=== PATIENT | female | born 1950 | race Caucasian/White ===

== ENCOUNTER 2021-08-17 23:10 | Emergency (ER) | payer MEDICARE, SELFPAY ==
[2021-08-17 23:19] VITALS: BP 130/81; PULSE 91; RESP 18; TEMP 36.6; O2SAT 99; BMI 19.7
--- NOTE | 2021-08-18 02:11 | USR_ITS ---
PROCEDURE INFORMATION: Exam: US Duplex Left Lower Extremity Veins, Limited Exam date and time: 08/18/2021 2:40 AM Age: 71 years old Clinical indication: Pain; Edema, localized; Lower extremity, left; Leg, lower; Additional info: L leg edema TECHNIQUE: Imaging protocol: Real-time Duplex ultrasound of the Left Lower Extremity with 2-D montelongo scale, color Doppler flow and spectral waveform analysis with image documentation. Limited exam focused on the left lower extremity veins. COMPARISON: CR (LOW EXM, ) 08/18/2021 2:14 AM FINDINGS: Left deep veins: Unremarkable. The common femoral, femoral, proximal profunda femoral are patent without thrombus. Normal Doppler waveforms. Normal compressibility and/or augmentation response. There is normal compressibility of the popliteal vein. However evaluation for Doppler flow is limited in evaluation due to patient's condition. Left superficial veins: Unremarkable. Saphenofemoral junction is patent without thrombus. Soft tissues: Unremarkable. US/[place] [id number] IMPRESSION: No evidence of deep vein thrombosis.
--- NOTE | 2021-08-18 02:11 | XRR_ITS ---
PROCEDURE INFORMATION: Exam: XR Left Ankle Exam date and time: 08/18/2021 2:14 AM Age: 71 years old Clinical indication: Pain; Swelling, leg or foot; Patient HX: Patient C/O swelling and redness to left ankle. Patient sustained fracture from fall a few weeks ago. ; Additional info: Fall L ankle pain TECHNIQUE: Imaging protocol: Radiologic exam of the Left ankle. Views: 3 or more views. COMPARISON: No relevant prior studies available. FINDINGS: Bones/joints: Displaced distal fibular fracture. Minimally displaced distal tibial metadiaphyseal fracture. Joint effusion. Soft tissues: Soft tissue edema. XR/XR ankle LT min 3V* [id number] IMPRESSION: 1. Displaced distal fibular fracture. 2. Minimally displaced distal tibial metadiaphyseal fracture.
[2021-08-18 03:08] VITALS: RESP 18
[2021-08-18] MEDS: morphine 4 mg/mL SDV 1 mL IM (03:08)
[2021-08-18] MEDS: LORazepam 2 mg/mL INJ 1 mL 1 MG IM (03:35)
--- NOTE | 2021-08-18 04:55 | ED_ITS ---
HPI - Extremity Problem General: Chief complaint: Extremity Injury, Lower Stated complaint: possible infection in L leg Time Seen by Provider: 08/18/21 01:56 History of Present Illness: 71-year-old female who fell, hurting her left ankle sometime around 3 weeks ago. She would not let her family take her to the doctor until 3 days ago. She was seen in outside facility, and had trouble with tremor on her exam there. By her report, the physician became frustrated, and despite telling her that she broke her ankle, discharged her without pain medication. She presents tonight not in the splint, with increased swelling to the lower extremity as well as the ankle. She has significant pain, particularly with any weightbearing. MD Complaint: extremity pain Onset (ago): week(s) Pain Consistency: constant Location: left, lower extremity and other Quality: aching Radiation: none Relieving factors: nothing Exacerbating factors: range of motion and weight bearing Associated symptoms: Deny chest pain, fever(s), rash or short of breath Context: immobilization Review of Systems Const: Denies: fever(s) Card: Denies: chest pain Resp: Denies: dyspnea GI: Denies: abdominal pain Musc: Denies: neck pain or back pain Skin/Breast: Denies: rash Physical Exam Const: COMMON NORMALS: no acute distress GENERAL APPEARANCE: cooperative and frail appearing HENMT: COMMON NORMALS: normocephalic and atraumatic HEAD & SCALP: normocephalic and atraumatic Eye: COMMON NORMALS: Equal, round and reactive pupils present and EOMs intact bilaterally PUPIL: Yes Equal, round and reactive pupils present Neck/C-Spine: GENERAL: Yes trachea midline Chest: CHEST: Yes Symmetrical chest wall rise Resp: COMMON NORMALS: normal respiratory effort and No use of accessory muscles Cardio: COMMON NORMALS: regular rate and regular rhythm RATE: regular rate RHYTHM: regular rhythm OTHER: Neurovascularly intact to the lower extremities. GI: INSPECTION: Yes normal to inspection Extremity: NARRATIVE EXTREMITY EXAM: Examination left lower extremity reveals swelling over the medial and lateral ankle. There is slight deformity. There is tenderness over the medial and lateral malleoli of the ankle. There is swelling stretching up the calf. The calf is tender as well Neuro: SHELLEY COMA SCALE: document [facility] findings [place] coma scale eye opening: Spontaneous [place] coma scale verbal response: Orientated Shel[place] coma scale motor response: Obey commands Shelley coma scale total score: 15 Course Vital Signs: Vital signs: Vital Signs Temperature 98 F 08/17/21 23:19 Pulse Rate 91 08/17/21 23:19 Respiratory Rate 18 08/18/21 03:08 Blood Pressure 130/81 08/17/21 23:19 Pulse Oximetry 99 08/17/21 23:19 MDM - Extremity (Nontraumatic) Medical Decision Making X-ray reveals a mildly displacedTrimalleolar fracture, although her mortise appears un- widened. The patient had trouble with her ultrasound DVT exam, particularly with tremors that were worsening presumably due to Parkinson's disease. She was given pain medication with improvement. Ultrasound DVT is pending. Ultrasound for DVT is negative. She will be splinted, and referred as an outpatient for to Ortho. This fracture is 3 weeks old. She does appear to have some healing on fracture x-ray. Discharge Plan Discharge Patient Disposition: Home Clinical Impression: Ankle fracture Qualifiers: Encounter type: initial encounter Fracture type: closed Laterality: left Qualified Code(s): S82.892A - Other fracture of left lower leg, initial encounter for closed fracture Condition: Stable Prescriptions: New hydrocodone-acetaminophen 5-325 mg tablet 1 tab PO Q8H PRN (Reason: pain) Qty: 10 0RF Discharge Orders: Discharge ED (Routine); Ordered 08/18/21 Ordered By: Donnie Lei Referrals: Kimberly Aguilar MD [Physician] - 4-7 days Patient Instructions: Ankle Fracture (ED), Opioid Safety Activity Restrictions/Additional Instructions: Case management order has been placed to obtain an orthopedics referral as an outpatient for you. Stay in splint/boot until seen by them. No weightbearing to the left lower extremity return for worsening problems. Coding Level of Care Code ED Business Attorney for Roselia Fwd Exam Comprehensive
[2021-08-18 06:03] VITALS: BP 129/79; PULSE 89; RESP 18; TEMP 36.6; O2SAT 97
--- NOTE | 2021-08-19 08:11 | DCPLANNER ---
Addendum entered by Roseanne Patton 09/23/21 15:08: Patient had a follow up appointment scheduled for 08.22.[address] Aguilar - patient did attend appointment. Original Note: tax services manager had message to schedule a follow up appointment for patient with ortho. tax services manager sent patients information to the front office staff at ortho. Patients information will be printed and reviewed. Clinic will call patient with appointment information.
== END 2021-08-18 06:07 | disposition home or self-care (01) ==
PROVIDERS: Emergency Provider Emergency Medicine
DX: S82.892A Other fracture of left lower leg, initial encounter for closed fracture (principal); X58.XXXA Exposure to other specified factors, initial encounter
CPT/HCPCS: 73610; 93971; 96372; 99283; J2060; J2270

== ENCOUNTER → 2021-08-22 13:38 | Outpatient (BNVA) | payer MEDICARE, SELFPAY | PROVIDERS: Referring Provider Emergency Medicine; Visit Provider Specialist | DX: W19.XXXA Unspecified fall, initial encounter (principal); S82.852A Displaced trimalleolar fracture of left lower leg, initial encounter for closed fracture | CPT/HCPCS: 27816; 73610; 99204 ==

== ENCOUNTER 2021-08-22 15:47 | Outpatient (CLI) | payer MEDICARE, SELFPAY | END 2021-08-22 15:48 | disposition home or self-care (01) | LOC: SPT 15:48 | PROVIDERS: Visit Provider Specialist | DX: Z46.89 Encounter for fitting and adjustment of other specified devices (principal); S82.892D Other fracture of left lower leg, subsequent encounter for closed fracture with routine healing; X58.XXXD Exposure to other specified factors, subsequent encounter | CPT/HCPCS: 97760; L4361 ==

== ENCOUNTER → 2021-09-17 15:23 | Outpatient (BNVA) | payer MEDICARE, SELFPAY | PROVIDERS: Visit Provider Specialist | DX: S82.852P Displaced trimalleolar fracture of left lower leg, subsequent encounter for closed fracture with malunion (principal); W19.XXXD Unspecified fall, subsequent encounter | CPT/HCPCS: 73610; 99024 ==

== ENCOUNTER 2021-09-17 16:27 | Outpatient (CLI) | payer MEDICARE, SELFPAY | END 2021-09-17 16:28 | disposition home or self-care (01) | LOC: SPT 16:28 | PROVIDERS: Visit Provider Specialist | DX: Z46.89 Encounter for fitting and adjustment of other specified devices (principal); S82.852D Displaced trimalleolar fracture of left lower leg, subsequent encounter for closed fracture with routine healing; X58.XXXD Exposure to other specified factors, subsequent encounter | CPT/HCPCS: 97760; L1902 ==

== ENCOUNTER → 2022-03-25 15:13 | Outpatient (BNVA) | payer MEDICARE, SELFPAY | PROVIDERS: Visit Provider Podiatrist Foot & Ankle Surgery | DX: M21.42 Flat foot [pes planus] (acquired), left foot (principal); S82.852P Displaced trimalleolar fracture of left lower leg, subsequent encounter for closed fracture with malunion; M14.672 Charcot's joint, left ankle and foot; X58.XXXD Exposure to other specified factors, subsequent encounter | CPT/HCPCS: 73600; 73630; 99204 ==

== ENCOUNTER → 2022-06-27 11:52 | Outpatient (BNVA) | payer MEDICARE, SELFPAY | PROVIDERS: Visit Provider Podiatrist Foot & Ankle Surgery | DX: M14.672 Charcot's joint, left ankle and foot (principal); S82.852P Displaced trimalleolar fracture of left lower leg, subsequent encounter for closed fracture with malunion; M21.42 Flat foot [pes planus] (acquired), left foot; X58.XXXA Exposure to other specified factors, initial encounter | CPT/HCPCS: 73630; 99213 ==

== ENCOUNTER → 2022-10-30 14:34 | Outpatient (BNVA) | payer MEDICARE, SELFPAY | PROVIDERS: Visit Provider Surgery | DX: K62.3 Rectal prolapse (principal) | CPT/HCPCS: 99204 ==

== ENCOUNTER 2023-03-22 17:10 | Emergency (ER) | payer MEDICARE, SELFPAY ==
[2023-03-22 17:17] VITALS: BP 137/90; PULSE 91; RESP 17; O2SAT 95; BMI 17.3
--- NOTE | 2023-03-22 17:50 | ED_ITS ---
HPI - General Adult General: Chief complaint: General Medical Stated complaint: PROLAPSED RECTUM Time Seen by Provider: 03/22/23 17:11 Source: patient Mode of arrival: EMS History of Present Illness: 72-year-old female presents to the emerg ency room with complaints of prolapsed rectum. Tried several measures at the [facility] without results. No active bleeding. No fever sweats or chills. She has had a chronic issue with prolapsed rectum. Associated symptoms: Reports chest pain and dyspnea Review of Systems Card: Reports: chest pain Resp: Reports: dyspnea GI: Reports: abdominal pain PFSH ED PFSH: Medical History (Updated 03/22/23 @ 17:53 by Deion Torres DO) Parkinson disease Social History Smoking and tobacco/nicotine status: former use of tobacco/nicotine (stopped 11 years ago) Physical Exam Const: COMMON NORMALS: no acute distress GENERAL APPEARANCE: cooperative and comfortable ORIENTATION/CONSCIOUSNESS: Yes awake, Yes oriented to person, Yes oriented to place and Yes oriented to time HENMT: COMMON NORMALS: normocephalic, atraumatic and hearing grossly normal bilaterally HEAD & SCALP: normocephalic and atraumatic Resp: COMMON NORMALS: normal respiratory effort, No retractions, No use of accessory muscles and clear to auscultation bilaterally AUSCULTATION: clear to auscultation bilaterally Cardio: COMMON NORMALS: regular rate, regular rhythm and No murmurs present (Cardio) RATE: regular rate RHYTHM: regular rhythm GI: COMMON NORMALS: Soft to palpation and No hepatosplenomegaly present AUSCULTATION: Yes normoactive bowel sounds PALPATION: Yes Soft to palpation, No Tenderness to palpation present (GI), No Guarding due to palpation present (GI) and Yes No hepatosplenomegaly present Extremity: COMMON NORMALS: normal to inspection, capillary refill normal, no clubbing, cyanosis or edema, no calf tenderness and no pedal edema Neuro: SENSORIUM/ORIENTATION: Yes oriented to person, Yes oriented to place and Yes oriented to time Skin: COMMON NORMALS: no rashes or lesions noted GENERAL SKIN EXAM: no rashes or lesions noted Course Vital Signs: Vital signs: Vital Signs Pulse Rate 91 03/22/23 17:17 Respiratory Rate 17 03/22/23 17:17 Blood Pressure 137/90 03/22/23 17:17 Pulse Oximetry 95 03/22/23 17:17 Oxygen Delivery Me thod Room Air 03/22/23 17:17 MDM - General Adult Medical Decision Making Prophylaxis reptile manipulated and reduced without recurrence. Will discharge back to the [facility] continue to follow-up with primary care Medical Records I reviewed the patient's medical records. Lab Data I reviewed the patient's lab results. No radiology studies performed this visit Discharge Plan Discharge Patient Disposition: Home Clinical Impression: Rectal prolapse Condition: Stable Prescriptions: New Miralax 17 gram/dose powder 4 g PO DAILY Qty: 850 0RF No Action entacapone 200 mg tablet PO pantoprazole 40 mg tablet,delayed release (DR/EC) PO venlafaxine 150 mg capsule,extended release 24hr PO carbidopa-levodopa 50-200 mg tablet extended release PO ropinirole 0.5 mg tablet PO promethazine 12.5 mg tablet PO potassium chloride 10 mEq capsule, extended release PO baclofen 10 mg tablet PO hydrocodone-acetaminophen 10-325 mg tablet PO buspirone 15 mg tablet PO diazepam 5 mg tablet 5 mg PO DAILY sulfamethoxazole-trimethoprim 800-160 mg tablet PO venlafaxine 75 mg capsule,extended release 24hr 75 mg PO DAILY (DME) Torres Martinez boot to the left See Rx Instructions .Route .MEDSUPPLY Qty: 1 0RF Rx Instructions: As directed by [facility] Discharge Orders: Discharge ED (Routine); Ordered 03/22/23 Ordered By: Deion Torres Discharge Diet: Usual diet Discharge Activity: Increase activity as tolerated Patient Instructions: Opioid Safety, Pain Management Activity Restrictions/Additional Instructions: Thank you for choosing [facility] for your healthcare needs today. Please realize this is an emergency room and that we are providing you with a medical screening exam and this may not be complete and all inclusive of all the testing and or work up that you may need to determine your ailment or severity of your illness. It is very important that you follow up as instructed or that you return to the Emergency Department should you have concerns or if your condition changes or worsens in any way. Follow-up with your primary care doctor or with colorectal surgery regarding her rectal prolapse. Coding Level of Care Code ED Dough Sheeter for Roselia Hamm
[2023-03-22] MEDS: LORazepam 1 mg Tablet PO (18:38)
== END 2023-03-22 19:00 | disposition home or self-care (01) ==
PROVIDERS: Emergency Provider Family Medicine
DX: K62.3 Rectal prolapse (principal); G20.A1 Parkinson's disease without dyskinesia, without mention of fluctuations; Z87.891 Personal history of nicotine dependence
CPT/HCPCS: 99283

== ENCOUNTER 2023-09-19 10:25 | Emergency (ER) | payer MEDICARE, SELFPAY ==
--- NOTE | 2023-09-19 10:48 | XRR_ITS ---
PROCEDURE INFORMATION: Exam: XR Left Knee Exam date and time: 09/19/2023 10:53 AM Age: 73 years old Clinical indication: Injury or trauma; Fall; Blunt trauma; Knee; Left TECHNIQUE: Imaging protocol: Radiologic exam of the left knee. Views: 3 views. COMPARISON: CR XR foot LT min 3V* [id number] 06/27/2022 11:55 AM FINDINGS: Bones/joints: Osseous structures of the knee normal. No fracture. No joint effusion. Soft tissues unremarkable. Soft tissues: See Bones/joints finding. XR/XR knee LT 3V* [id number] IMPRESSION: Normal knee.
--- NOTE | 2023-09-19 10:48 | XRR_ITS ---
PROCEDURE INFORMATION: Exam: XR Left Hip Exam date and time: 09/19/2023 10:53 AM Age: 73 years old Clinical indication: Injury or trauma; Fall; Blunt trauma (contusions or hematomas); Left; Hip TECHNIQUE: Imaging protocol: Radiologic exam of the left hip. Views: 2 or 3 views hip with pelvis when performed. COMPARISON: No relevant prior studies available. FINDINGS: Bones/joints: Moderate degenerative changes within the hip including joint space narrowing and osteophyte formation particularly inferiorly. No acute fracture. The trabecular stress markings normal. Prior trauma involving the superior pubic ramus as well as the inferior pubic ramus. Fracture likely extends to the inferior aspect of the left acetabulum. Soft tissues: Unremarkable. XR/XR hip LT 2-3V wo/w pel* [id number] IMPRESSION: 1. Prior trauma involving the left superior pubic ramus as well as the inferior pubic ramus. Fracture likely extends to the inferior aspect of the left acetabulum. Healed. 2. Moderate degenerative changes within the hip.
--- NOTE | 2023-09-19 10:48 | CTR_ITS ---
PROCEDURE INFORMATION: Exam: CT Cervical Spine Without Contrast Exam date and time: 09/19/2023 11:28 AM Age: 73 years old Clinical indication: Injury or trauma; Fall; Blunt trauma TECHNIQUE: Imaging protocol: Computed tomography of the cervical spine without contrast. Radiation optimization: All CT scans at this facility use at least one of these dose optimization techniques: automated exposure control; mA and/or kV adjustment per patient size (includes targeted exams where dose is matched to clinical indication); or iterative reconstruction. COMPARISON: CT head wo con* [id number] 09/19/2023 11:28 AM RADIATION DOSE METRICS: Total DLP (mGy-cm): 1590.93 FINDINGS: Bones: posterior vertebral line and the spinal laminar line normal. odontoid process normal. no fracture. degenerative disc disease most pronounced C3-C4, C4-C5, C5-C6 and C6-C7 reflected as disk space narrowing and anterior osteophyte formation. Straightening of the normal cervical lordosis. Multi-level facet hypertrophic changes- Lungs: Lung apices are normal. Vasculature: Carotid calcifications particularly on the left Soft tissues: Unremarkable. CT/CT cervical spin wo con* [id number] IMPRESSION: No fracture. Degenerative disc disease most pronounced C3-C4, C4-C5, C5-C6 and C6-C7 reflected as disk space narrowing and anterior osteophyte formation.
--- NOTE | 2023-09-19 10:48 | CTR_ITS ---
PROCEDURE INFORMATION: Exam: CT Head Without Contrast Exam date and time: 09/19/2023 11:28 AM Age: 73 years old Clinical indication: Injury or trauma; Fall; Blunt trauma (contusions or hematomas) TECHNIQUE: Imaging protocol: Computed tomography of the head without contrast. Radiation optimization: All CT scans at this facility use at least one of these dose optimization techniques: automated exposure control; mA and/or kV adjustment per patient size (includes targeted exams where dose is matched to clinical indication); or iterative reconstruction. COMPARISON: No relevant prior studies available. RADIATION DOSE METRICS: Total DLP (mGy-cm): 1590.93 FINDINGS: Brain: No bleed, mass, or shift of structures. Mild atrophy. Areas of low attenuation in the periventricular white matter believed to be the manifestatiion of small vessel ischemic disease. No CT evidence of mass hemorrhage or acute infarction. 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 Cerebral ventricles: No ventriculomegaly. Paranasal sinuses: Visualized sinuses are unremarkable. No fluid levels. Mastoid air cells: Visualized mastoid air cells are well aerated. Bones: Unremarkable. No acute fracture. Soft tissues: Soft tissue scalp contusion in the left frontal region CT/CT head wo con* [id number] IMPRESSION: No acute intracranial process is appreciated.
[2023-09-19 11:08] VITALS: BP 142/81; PULSE 77; RESP 18; TEMP 36.8; O2SAT 95; BMI 19.0
[2023-09-19 11:16] LABS: Basophils % 0.6 %; Eosinophils # 0.2 10^3/uL (0.0-0.8); Eosinophils % 3.5 %; Hematocrit 43.3 % (36-47); Lymphocytes # 0.8 10^3/uL (0.8-4.8); Lymphocytes % 11.8 %; Mean Corpuscular HGB Conc 32.1 g/dL (30-55); Mean Corpuscular Hemoglobin 29.3 pg (27-33); Mean Corpuscular Volume 91.2 fl (85-98); Mean Platelet Volume 9.2 fL (7.4-10.4); Monocytes # 0.6 10^3/uL (0.2-0.9); Monocytes % 9.4 %; Neutrophils % 74.6 %; Nucleated Red Blood Cells % 0 %; Platelet Count 373 10^3/cmm (157-399); Red Blood Count 4.75 10^6/uL (3.85-5.65); Red Cell Distribution Width 12.5 % (12.1-15.1); White Blood Count 6.84 10^3/uL (3.29-11.43)
--- NOTE | 2023-09-19 11:35 | CTR_ITS ---
PROCEDURE INFORMATION: Exam: CT Pelvis Without Contrast; Skeletal Exam date and time: 09/19/2023 11:36 AM Age: 73 years old Clinical indication: Injury or trauma; Fall; Blunt trauma (contusions or hematomas); Bilateral; Pelvic region TECHNIQUE: Imaging protocol: Computed tomography of the pelvis without contrast. Exam focused on the skeleton. Radiation optimization: All CT scans at this facility use at least one of these dose optimization techniques: automated exposure control; mA and/or kV adjustment per patient size (includes targeted exams where dose is matched to clinical indication); or iterative reconstruction. COMPARISON: CR XR hip LT 2-3V wo/w pel* [id number] 09/19/2023 10:53 AM RADIATION DOSE METRICS: Total DLP (mGy-cm): 230.29 FINDINGS: Intraperitoneal space: No intraperitoneal or extraperitoneal free fluid. Bones/joints: Femoroacetabular alignment is normal bilaterally. The proximal femora are intact. There are chronic fractures of the left superior and inferior pubic rami. No acute pelvic fracture. SI joints are symmetric. Sacrum is intact. Moderate to severe lower lumbar disc and facet degeneration. Soft tissues: Visible soft tissues are unremarkable. CT/CT pelvis wo con [id number] IMPRESSION: 1. No sign of acute traumatic injury. 2. Chronic left pubic fractures.
[2023-09-19 11:36] LABS: Alanine Aminotransferase 7 U/L (0-33); Albumin Level 3.8 g/dL (3.5-5.2); Alkaline Phosphatase 111 U/L (35-105); Anion Gap 16.9 (5-19); Aspartate Amino Transferase 12 U/L (0-32); Blood Urea Nitrogen 12 mg/dL (8-23); Calcium 8.9 mg/dL (8.5-10.5); Carbon Dioxide 25 mmol/L (22-29); Chloride 102 mmol/L (98-107); Globulin 2.9 g/dL (1.3-4.6); Glucose 92 mg/dL (65-115); Osmolality Calculated 289 mOsm/kg (285-295); Potassium 3.9 mmol/L (3.5-5.1); Sodium 140 mmol/L (136-145); Total Bilirubin 0.2 mg/dL (0.15-1.2); Total Protein 6.7 g/dL (6.6-8.7)
[2023-09-19 12:00] VITALS: BP 145/78; PULSE 74; RESP 19; O2SAT 93
--- NOTE | 2023-09-19 12:57 | PC.PHAR ---
PT IS FROM [facility]
--- NOTE | 2023-09-19 13:09 | ED_ITS ---
HPI - Fall 2 General: Chief Complaint: Fall Stated Complaint: fall Time Seen by Provider: 09/19/23 10:27 History of Present Illness: 73-year-old female who presents emergenc y room with fall at longterm. Patient has an abrasion to her forehead circumstances exactly how she fell or not quite clear I believe it was last night. Patient denies any pain no chest pain or abdominal pain we did call back to the longterm the ER nurse had talked one of the longterm nurses and the only report we could get was that this sometime last night she fell. No report of loss of consciousness. Fall witnessed: no Place fall occurred: longterm/SNF Location of injury: head Associated symptoms-after fall: Denies abdominal pain, chest pain or neck pain Review of Systems 2 Const: Denies: fever(s) or chills Card: Denies: chest pain Resp: Denies: dyspnea GI: Denies: abdominal pain : Denies: dysuria, urinary frequency or urinary urgency Musc: Denies: neck pain or back pain Skin/Breast: Denies: rash PFSH ED 2 PFSH: Medical History Parkinson disease Social History Smoking and tobacco/nicotine status: former use of tobacco/nicotine (stopped 11 years ago) Physical Exam 2 Const: GENERAL APPEARANCE: cooperative ORIENTATION/CONSCIOUSNESS: Yes awake HENMT: COMMON NORMALS: normocephalic and hearing grossly normal bilaterally HEAD & SCALP: normocephalic Resp: COMMON NORMALS: normal respiratory effort, No retractions, No use of accessory muscles and clear to auscultation bilaterally AUSCULTATION: clear to auscultation bilaterally Cardio: COMMON NORMALS: regular rate, regular rhythm and No murmurs present (Cardio) RATE: regular rate RHYTHM: regular rhythm GI: COMMON NORMALS: Soft to palpation and No hepatosplenomegaly present A USCULTATION: Yes normoactive bowel sounds PALPATION: Yes Soft to palpation, No Tenderness to palpation present (GI), No Guarding due to palpation present (GI) and Yes No hepatosplenomegaly present Extremity: COMMON NORMALS: normal to inspection, capillary refill normal, no clubbing, cyanosis or edema, no calf tenderness and no pedal edema OTHER: Movement in all extremities without significant pain and did test her hips shoulders elbows and knees and ankles with no evidence of pain with range of motion no sign of trauma to these joints. Skin: COMMON NORMALS: no rashes or lesions noted GENERAL SKIN EXAM: no rashes or lesions noted Course 2 Vital Signs: Vital signs: Vital Signs Temperature 98.2 F 09/19/23 11:08 Pulse Rate 81 09/19/23 15:54 Respiratory Rate 22 H 09/19/23 15:54 Blood Pressure 152/68 09/19/23 15:54 Pulse Oximetry 95 09/19/23 15:54 MDM - Fall Medical Decision Making Patient does have a history of Parkinson's. She did have some white blood cells with +1 leukocyte however she is asymptomatic. I did not treat at this time we will await pending culture results. Other labs and CT are negative. She was complaining of some muscle spasms she was given Norflex and also her regular Sinemet dose. Workup otherwise unremarkable discharge patient back to the longterm with follow-up with her primary as needed Lab Data 09/19/23 11:10 09/19/23 11:10 Radiology Impressions Cervical Spine CT 09/19/23 10:48 IMPRESSION: No fracture. Degenerative disc disease most pronounced C3-C4, C4-C5, C5-C6 and C6-C7 reflected as disk space narrowing and anterior osteophyte formation. Head CT 09/19/23 10:48 IMPRESSION: No acute intracranial process is appreciated. Hip/Pelvis X-Ray 09/19/23 10:48 IMPRESSION: 1. Prior trauma involving the left superior pubic ramus as well as the inferior pubic ramus. Fracture likely extends to the inferior aspect of the left acetabulum. Healed. 2. Moderate degenerative changes within the hip. Knee X-Ray 09/19/23 10:48 IMPRESSION: Normal knee. Pelvis CT 09/19/23 11:35 IMPRESSION: 1. No sign of acute traumatic injury. 2. Chronic left pubic fractures. Laboratory Results WBC 6.84 10^3/uL (3.29-11.43) 09/19/23 11:10 RBC 4.75 10^6/uL (3.85-5.65) 09/19/23 11:10 Hgb 13.90 g/dL (11.27-16.99) 09/19/23 11:10 Hct 43.3 % (36-47) 09/19/23 11:10 MCV 91.2 fl (85-98) 09/19/23 11:10 MCH 29.3 pg (27-33) 09/19/23 11:10 MCHC 32.1 g/dL (30-55) 09/19/23 11:10 RDW 12.5 % (12.1-15.1) 09/19/23 11:10 Plt Count 373 10^3/cmm (157-399) 09/19/23 11:10 MPV 9.2 fL (7.4-10.4) 09/19/23 11:10 Neut % (Auto) 74.6 % 09/19/23 11:10 Lymph % (Auto) 11.8 % 09/19/23 11:10 [place] % (Auto) 9.4 % 09/19/23 11:10 Eos % (Auto) 3.5 % 09/19/23 11:10 Baso % (Auto) 0.6 % 09/19/23 11:10 Neut # (Auto) 5.10 10^3/uL (1.8-7.7) 09/19/23 11:10 Lymph # (Auto) 0.8 10^3/uL (0.8-4.8) 09/19/23 11:10 [place] # (Auto) 0.6 10^3/uL (0.2-0.9) 09/19/23 11:10 Eos # (Auto) 0.2 10^3/uL (0.0-0.8) 09/19/23 11:10 Baso # (Auto) 0.0 10^3/uL (0.0-0.1) 09/19/23 11:10 Nucleated RBC % (auto) 0 % 09/19/23 11:10 Nucleated RBCs # 0.0 /100WBC 09/19/23 11:10 Sodium 140 mmol/L (136-145) 09/19/23 11:10 Potassium 3.9 mmol/L (3.5-5.1) 09/19/23 11:10 Chloride 102 mmol/L (98-107) 09/19/23 11:10 Carbon Dioxide 25 mmol/L (22-29) 09/19/23 11:10 Anion Gap 16.9 (5-19) 09/19/23 11:10 BUN 12 mg/dL (8-23) 09/19/23 11:10 Creatinine 0.4 mg/dL (0.5-0.9) L 09/19/23 11:10 GFR Calculation Not Reportable 09/19/23 11:10 Glucose 92 mg/dL (65-115) 09/19/23 11:10 Calculated Osmolality 289 mOsm/kg (285-295) 09/19/23 11:10 Calcium 8.9 mg/dL (8.5-10.5) 09/19/23 11:10 Total Bilirubin 0.2 mg/dL (0.15-1.2) 09/19/23 11:10 AST 12 U/L (0-32) 09/19/23 11:10 ALT 7 U/L (0-33) 09/19/23 11:10 Alkaline Phosphatase 111 U/L (35-105) H 09/19/23 11:10 Total Protein 6.7 g/dL (6.6-8.7) 09/19/23 11:10 Albumin 3.8 g/dL (3.5-5.2) 09/19/23 11:10 Globulin 2.9 g/dL (1.3-4.6) 09/19/23 11:10 Urine Color Yellow (Yellow) 09/19/23 13:24 Urine Appearance Clear (CLEAR) 09/19/23 13:24 Urine pH 6 (5-7) 09/19/23 13:24 Ur Specific [place] 1.015 (1.005-1.030) 09/19/23 13:24 Urine Protein Neg (Negative) 09/19/23 13:24 Urine Glucose (UA) Norm (Normal) 09/19/23 13:24 Urine Ketones 1+ (Negative) H 09/19/23 13:24 Urine Blood Neg (Negative) 09/19/23 13:24 Urine Nitrate Negative (Negative) 09/19/23 13:24 Urine Bilirubin Neg (Negative) 09/19/23 13:24 Urine Urobilinogen Neg mg/dL (Negative) 09/19/23 13:24 Ur Leukocyte Esterase 1+ (Negative) H 09/19/23 13:24 Urine RBC 0-4 /hpf (0-2) H 09/19/23 13:24 Urine WBC 5-10 /hpf (0-5) H 09/19/23 13:24 Ur Squamous Epith Cells 0-4 /hpf (0-5) H 09/19/23 13:24 Amorphous Sediment Not Reportable 09/19/23 13:24 Urine Bacteria Trace /hpf (NONE) 09/19/23 13:24 Urine Mucus Trace /hpf 09/19/23 13:24 All radiology interpretation(s) finalized by discharge Discharge Plan Discharge Patient Disposition: Home Clinical Impression: Fall, Parkinson disease Condition: Stable Prescriptions: No Action entacapone 200 mg tablet 1 tab PO .5XD venlafaxine 150 mg capsule,extended release 24hr 300 mg PO QAM carbidopa-levodopa 50-200 mg tablet extended release 2 tab PO QID ropinirole 0.5 mg tablet 0.5 mg PO TID promethazine 12.5 mg tablet 1 tab PO Q6H PRN (Reason: Indigestion) baclofen 10 mg tablet 1 tab PO TID buspirone 15 mg tablet 15 mg PO TID diazepam 5 mg tablet 5 mg PO TID (DME) [place] boot to the left See Rx Instructions .Route .MEDSUPPLY Qty: 1 0RF Rx Instructions: As directed by [facility] albuterol sulfate 2.5 mg /3 mL (0.083 %) solution for nebulization 2.5 mg inhalation Q4H PRN (Reason: Wheezing) ascorbic acid (vitamin C) 250 mg Tablet 250 mg PO BID benzonatate 100 mg Capsule 100 mg PO TID PRN (Reason: Cough) alum-mag hydroxide-simeth 200-200-20 mg/5 mL Suspension 30 ml PO Q2H PRN (Reason: Indigestion) Rx Instructions: administer between meals and at bedtime albuterol sulfate 90 mcg/actuation HFA aerosol inhaler 2 puff INHALATION Q6H PRN (Reason: Shortness Of Breath) cholecalciferol (vitamin D3) 25 mcg (1,000 unit) Tablet 25 mcg PO DAILY diclofenac sodium 1 % Gel 4 g TOPICAL BID Rx Instructions: apply to single knee, ankle, foot; for foot includes sole/toes/top of foot Biofreeze (menthol) 4 % Gel 1 applic TOPICAL Q6H PRN (Reason: Pain) multivitamin Tablet 1 tab PO DAILY hydrocortisone 0.5 % Cream 1 applic TOPICAL BID acetaminophen 325 mg Tablet 650 mg PO Q6H PRN (Reason: Pain) ipratropium-albuterol 0.5 mg-3 mg(2.5 mg base)/3 mL Solution For Nebulization 3 ml INHALATION Q6H PRN (Reason: Shortness Of Breath) lidocaine 4 % Adhesive Patch,Medicated 1 patch TOPICAL DAILY PRN (Reason: Pain) ondansetron HCl 8 mg tablet 8 mg PO Q6H PRN (Reason: Nausea And Vomiting) sucralfate 1 gram tablet 1 mg PO BID potassium chloride 20 mEq tablet,ER particles/crystals 20 meq PO BID nortriptyline 75 mg capsule 75 mg PO BEDTIME ferrous sulfate 325 mg (65 mg iron) Tablet 325 mg PO BID Colace 100 mg Capsule 100 mg PO DAILY Flonase 50 mcg/actuation [place],Suspension 1 spray INTRANASAL DAILY Rx Instructions: administer into each nostril loratadine 10 mg Tablet 10 mg PO DAILY Robitussin Cold, Cough,and Flu 1-2.5-5-160 mg/5 mL Suspension 5 ml PO Q4H PRN (Reason: Cough) oxycodone 10 mg tablet 10 mg PO Q6H PRN (Reason: Pain, Moderate) guaifenesin 600 mg Tablet Extended Release 12hr 600 mg PO Q12H melatonin 1 mg Tablet Extended Release 1 mg PO BEDTIME Discharge Orders: Discharge ED (Routine); Ordered 09/19/23 Ordered By: Deion Torres Referrals: Daniel Coroenl Jr, MD [Primary Care Provider] - Discharge Diet: Usual diet Discharge Activity: Resume usual activity Patient Instructions: Opioid Safety, Pain Management Coding Level of Care Code ED [employer]ctor for Roselia Hamm
[2023-09-19 13:28] VITALS: BP 143/77; PULSE 71; RESP 20; O2SAT 93
[2023-09-19] MEDS: tizanidine 4 mg Tablet 2 MG PO (13:34)
[2023-09-19 13:36] LABS: Urine Color Yellow (Yellow)
[2023-09-19 13:37] LABS: Bilirubin Urine Neg (Negative); Blood Urine Neg (Negative); Glucose Urine UA Norm (Normal); Ketones Urine 1+ (Negative); Leukocyte Esterase Urine 1+ (Negative); Nitrate Urine Negative (Negative); Protein Urine Neg (Negative); RBC Urine 0-4 /hpf (0-2); Specific Gravity, Urine 1.015 (1.005-1.030); Urine Appearance Clear (CLEAR); Urobilinogen Urine Neg (Negative); pH Urine 6 (5-7)
[2023-09-19 13:38] LABS: Add Urine Culture? Yes; Add Urine Microscopic? YES; Bacteria Urine TRACE /hpf; Mucus Urine TRACE /hpf; Squamous Epithelial Cell Urine 0-4 /hpf (0-5)
[2023-09-19] MEDS: baclofen 10 mg Tablet PO (14:19)
[2023-09-19 15:54] VITALS: BP 152/68; PULSE 81; RESP 22; O2SAT 95
== END 2023-09-19 15:55 | disposition home or self-care (01) ==
PROVIDERS: Emergency Provider Family Medicine; PCP Family Medicine
DX: S00.81XA Abrasion of other part of head, initial encounter (principal); G20.A1 Parkinson's disease without dyskinesia, without mention of fluctuations; W19.XXXA Unspecified fall, initial encounter; Y92.129 Unspecified place in nursing home as the place of occurrence of the external cause; Z87.891 Personal history of nicotine dependence
CPT/HCPCS: 70450; 72125; 72192; 73502; 73562; 80053; 81001; 85025; 87086; 99284

== ENCOUNTER → 2023-10-06 08:00 | Outpatient (BNVA) | payer MEDICARE, SELFPAY | PROVIDERS: PCP Family Medicine; Referring Provider Family Medicine; Visit Provider Psychiatry & Neurology Neurology | DX: G20.B1 Parkinson's disease with dyskinesia, without mention of fluctuations (principal) | CPT/HCPCS: 99203 ==

== ENCOUNTER → 2023-11-24 12:15 | Outpatient (BNVA) | payer MEDICARE, SELFPAY | PROVIDERS: PCP Family Medicine; Visit Provider Psychiatry & Neurology Neurology | DX: M25.572 Pain in left ankle and joints of left foot (principal); G20.B1 Parkinson's disease with dyskinesia, without mention of fluctuations; K62.3 Rectal prolapse; M14.672 Charcot's joint, left ankle and foot; S82.852P Displaced trimalleolar fracture of left lower leg, subsequent encounter for closed fracture with malunion; E55.9 Vitamin D deficiency, unspecified; G20.A1 Parkinson's disease without dyskinesia, without mention of fluctuations; X58.XXXD Exposure to other specified factors, subsequent encounter | CPT/HCPCS: 36415; 82306; 82310; 82607; 82746; 83090; 83735; 83921; 84132; 84295; 84439; 84443; 84481; 99212; 99214 ==

== ENCOUNTER 2024-01-24 17:01 | Emergency (ER) | payer MEDICARE, SELFPAY ==
[2024-01-24 17:02] VITALS: BP 147/60; PULSE 77; RESP 17; TEMP 36.5; O2SAT 97
--- NOTE | 2024-01-24 17:06 | CTR_ITS ---
PROCEDURE INFORMATION: Exam: CT Head Without Contrast Exam date and time: 01/24/2024 5:33 PM Age: 73 years old Clinical indication: Injury or trauma; Fall; Blunt trauma (contusions or hematomas); Without loss of consciousness; Additional info: Fall, head injury TECHNIQUE: Imaging protocol: Computed tomography of the head without contrast. Radiation optimization: All CT scans at this facility use at least one of these dose optimization techniques: automated exposure control; mA and/or kV adjustment per patient size (includes targeted exams where dose is matched to clinical indication); or iterative reconstruction. COMPARISON: CT head wo con* [id number] 09/19/2023 11:28 AM RADIATION DOSE METRICS: Total DLP (mGy-cm): 801.85 FINDINGS: Brain: Normal. No hemorrhage. Unremarkable white matter. No mass effect. Cerebral ventricles: No ventriculomegaly. Paranasal sinuses: Visualized sinuses are unremarkable. No fluid levels. Mastoid air cells: Visualized mastoid air cells are well aerated. Bones: Unremarkable. No acute fracture. Soft tissues: Unremarkable. CT/CT head wo con* [id number] IMPRESSION: No acute intracranial abnormality.
--- NOTE | 2024-01-24 17:07 | ECG_ITS ---
[facility] Date: 2024-[facility]24 Pat Name: Anny Goodwin Department: Room: Gender: Female Branch Officer: : 1950 Requested By: Saritha Mcguire Order Number: [id number] Reading MD: MICHELLE VALENTIN Measurements Intervals [place] Rate: 79 P: 66 ND: 183 QRS: -11 QRSD: 106 T: 66 QT: 396 QTc: 455 Interpretive Statements SINUS RHYTHM INFERIOR MYOCARDIAL INFARCTION , PROBABLY OLD [40+ ms Q WAVE AND/OR ST/T ABNORMALITY IN II/aVF] Compared to ECG 06/11/2014 03:22:02 Incomplete right bundle-branch block no longer present Myocardial infarct finding still present Electronically Signed On 01-26-2024 19:26:55 SIMULATION DEVELOPER by MICHELLE VALENTIN [email or web address]
--- NOTE | 2024-01-24 17:07 | XRR_ITS ---
PROCEDURE INFORMATION: Exam: XR Chest Exam date and time: 01/24/2024 5:20 PM Age: 73 years old Clinical indication: Dyspnea; Additional info: Weakness TECHNIQUE: Imaging protocol: Radiologic exam of the chest. Views: 1 view. COMPARISON: CT cervical spin wo con* [id number] 09/19/2023 11:28 AM FINDINGS: Lungs: Hypoventilatory changes at the left lung base. Mild interstitial prominence. Pleural spaces: Unremarkable. No pleural effusion. No pneumothorax. Heart/Mediastinum: See Vasculature finding. Vasculature: Borderline cardiomegaly and uncoiling of the thoracic aorta. Bones/joints: Unremarkable. XR/XR chest 1V portable [id number] IMPRESSION: No acute cardiopulmonary disease.
--- NOTE | 2024-01-24 17:20 | ED_ITS ---
HPI - Seizure 2 General: Chief Complaint: Syncope Stated Complaint: seizure Time Seen by Provider: 01/24/24 17:03 History of Present Illness: HPI Narrative: 73-year-old female with a history of Par kinson's and medication induced movement disorder, who follows with Dr. Blackwell and neurology, and chronic hypoxemic respiratory failure on 4 L nasal cannula who presents to the emergency room after having an episode where she was unresponsive for about 3 minutes. She was in the bathtub at this time at the skilled nursing. She presents by ambulance. She says right now she feels okay other than she is having cramping in her legs which she has frequently. There was no postictal event. No tonic-clonic movement. She is afebrile. She is on 4 L nasal cannula on presentation. Related Data Home Medications Medication Instructions Recorded Confirmed buspirone 15 mg tablet 15 mg PO TID 03/25/22 11/24/23 entacapone 200 mg tablet 1 tab PO .5XD 03/25/22 11/24/23 ropinirole 0.5 mg tablet 0.5 mg PO TID 03/25/22 11/24/23 venlafaxine 150 mg 300 mg PO QAM 03/25/22 11/24/23 capsule,extended release 24 hr diazepam 5 mg tablet 5 mg PO TID 10/30/22 11/24/23 acetaminophen 325 mg tablet 650 mg PO Q6H PRN Pain 09/19/23 11/24/23 albuterol sulfate 2.5 mg/3 mL 2.5 mg inhalation Q4H PRN Wheezing 09/19/23 11/24/23 (0.083 %) solution for nebulization albuterol sulfate 90 mcg/actuation 2 puff inhalation Q6H PRN 09/19/23 11/24/23 aerosol inhaler Shortness Of Breath aluminum-mag hydroxide-simethicone 30 ml PO Q2H PRN Indigestion 09/19/23 11/24/23 200 mg-200 mg-20 mg/5 mL oral susp ascorbic acid (vitamin C) 250 mg 250 mg PO BID 09/19/23 11/24/23 tablet benzonatate 100 mg capsule 100 mg PO TID PRN Cough 09/19/23 11/24/23 zjkogshkf-bpbmeyxdv-HG-acetaminophen 5 ml PO Q4H PRN Cough 09/19/23 11/24/23 1 mg-2.5 mg-5 mg-160 mg/5 mL susp cholecalciferol (vitamin D3) 25 25 mcg PO DAILY 09/19/23 11/24/23 mcg (1,000 unit) tablet diclofenac sodium 1 % topical gel 4 g topical BID 09/19/23 11/24/23 docusate sodium 100 mg capsule 100 mg PO DAILY 09/19/23 11/24/23 (Colace) ferrous sulfate 325 mg (65 mg 325 mg PO BID 09/19/23 11/24/23 iron) tablet fluticasone propionate 50 1 spray intranasal DAILY 09/19/23 11/24/23 mcg/actuation nasal spray,suspension guaifenesin 600 mg tablet, 600 mg PO Q12H 09/19/23 11/24/23 extended release 12 hr hydrocortisone 0.5 % topical cream 1 applic topical BID 09/19/23 11/24/23 ipratropium 0.5 mg-albuterol 3 mg 3 ml inhalation Q6H PRN Shortness 09/19/23 11/24/23 (2.5 mg base)/3 mL nebulization Of Breath soln lidocaine 4 % topical patch 1 patch topical DAILY PRN Pain 09/19/23 11/24/23 loratadine 10 mg tablet 10 mg PO DAILY 09/19/23 11/24/23 menthol 4 % topical gel (Biofreeze 1 applic topical Q6H PRN Pain 09/19/23 11/24/23 (menthol)) multivitamin 1 tab PO DAILY 09/19/23 11/24/23 nortriptyline 75 mg capsule 75 mg PO BEDTIME 09/19/23 11/24/23 ondansetron HCl 8 mg tablet 8 mg PO Q6H PRN Nausea And Vomiting 09/19/23 11/24/23 oxycodone 10 mg tablet 10 mg PO Q6H PRN Pain, Moderate 09/19/23 11/24/23 potassium chloride 20 mEq 20 meq PO BID 09/19/23 11/24/23 tablet,extended release(part/cryst) sucralfate 1 gram tablet 1 mg PO BID 09/19/23 11/24/23 Previous Rx's Medication Instructions Recorded [place] ronald to the left #1 ea 04/27/23 baclofen 10 mg tablet 10 mg PO QID #120 tabs 11/24/23 carbidopa 25 mg-levodopa 100 mg 2 tab PO .COMPLEX #120 tabs 11/24/23 tablet Allergies Allergy/AdvReac Type Severity Reaction Status Date / Time morphine Allergy Mild ADR-Migrain Verified 11/24/23 12:19 e cetirizine [From Zyrtec] Allergy ALGY-Hives Verified 11/24/23 12:19 clonazepam [From Klonopin] Allergy ALGY-Hives Verified 11/24/23 12:19 Review of Systems 2 Narrative: Constitutional symptoms: Negative except as documented in HPI. Skin symptoms: Negative except as documented in HPI. Eye symptoms: Negative except as documented in HPI. ENMT symptoms: Negative except as documented in HPI. Respiratory symptoms: Negative except as documented in HPI. Cardiovascular symptoms: Negative except as documented in HPI. Gastrointestinal symptoms: Negative except as documented in HPI. Genitourinary symptoms: Negative except as documented in HPI. Musculoskeletal symptoms: Negative except as documented in HPI. Neurologic symptoms: Negative except as documented in HPI. Psychiatric symptoms: Negative except as documented in HPI. Endocrine symptoms: Negative except as documented in HPI. PFSH ED 2 PFSH: Medical History Parkinson disease Social History Smoking and tobacco/nicotine status: former use of tobacco/nicotine Physical Exam 2 Narrative: EXAM NARRATIVE: General: Alert, no acute distress. Skin: Warm, dry. Head: Normocephalic, atraumatic. Neck: Supple, trachea midline. Eye: Extraocular movements are intact. Ears, nose, mouth and throat: mucosa moist. Cardiovascular: Regular, Normal peripheral perfusion. Respiratory: Lungs are clear to auscultation, respirations are non-labored, breath sounds are equal, Symmetrical chest wall expansion. Gastrointestinal: Soft, Nontender, Non distended Musculoskeletal: Normal ROM, no deformity. Neurological: Alert and oriented, No focal neurological deficit observed. Patient is somewhat cachectic. She has some contractures of her hands. She has constant movement from her movement disorder. Psychiatric: Cooperative, appropriate mood & affect. Course 2 Vital Signs: Vital signs: Vital Signs Temperature 97.7 F 01/24/24 17:02 Pulse Rate 62 01/24/24 19:13 Respiratory Rate 26 H 01/24/24 19:13 Blood Pressure 109/50 01/24/24 19:13 Pulse Oximetry 94 01/24/24 19:13 Oxygen Delivery Me thod Nasal Cannula 01/24/24 19:13 Oxygen Flow Rate 3 01/24/24 18:09 MDM - Seizure MDM Narrative Medical decision making narrative: Medical decision making: Differential diagnosis including but not limited to and based on the above HPI, review of systems and physical exam in this patient with syncope: Vasovagal, orthostatics hypotension, cardiac dysrhythmia, myocardial infarction, infection and hypotension, Orders placed to evaluate differential diagnosis based on the above differential, HPI and physical exam EKG: Time 1709. Rate 79. Normal sinus rhythm, No ST-T changes, no ectopy, normal TN & QRS intervals, This was reviewed and interpreted by myself the ER physician at 1715. There is significant interference from the patient's movement disorder CT head: No acute intracranial process. no intracranial hemorrhage, no evidence of infarct. no evidence of acute fracture.This was reviewed and interpreted by myself the ER physician. Chest x-ray: No acute process. No infiltrate. No pneumothorax. This was reviewed and interpreted by myself the emergency room physician. I also reviewed the radiology report. Lab Review: Laboratory results were reviewed and interpreted by myself the emergency room physician. No leukocytosis. Hemoglobin 11. BUN/creatinine are 20 and 0.5. Troponin mildly elevated at 38 but not significantly changed on 2-hour repeat. This is likely her baseline. Given her muscle mass BUN of 20 would indicate some renal dysfunction despite her creatinine of 0.5. I reviewed the patient's medical record. Reexamination: Patient remained stable. No increased work of breathing. No altered mental status. No focal motor deficits. Assessment and plan: Syncope Concern for seizure - Discharged home - Discussed plan with patient. Answered any questions. - Evaluation and treatment of this problem were appropriate in the emergency setting. Lab Data 01/24/24 17:25 01/24/24 17:25 Labs: Radiology Impressions Head CT 01/24/24 17:06 IMPRESSION: No acute intracranial abnormality. Chest X-Ray 01/24/24 17:07 IMPRESSION: No acute cardiopulmonary disease. Laboratory Results WBC 6.83 10^3/uL (3.29-11.43) 01/24/24 17:25 RBC 4.24 10^6/uL (3.85-5.65) 01/24/24 17:25 Hgb 11.00 g/dL (11.27-16.99) L 01/24/24 17:25 Hct 35.4 % (36-47) L 01/24/24 17:25 MCV 83.5 fl (85-98) L 01/24/24 17:25 MCH 25.9 pg (27-33) L 01/24/24 17:25 MCHC 31.1 g/dL (30-55) 01/24/24 17:25 RDW 15.4 % (12.1-15.1) H 01/24/24 17:25 Plt Count 371 10^3/cmm (157-399) 01/24/24 17:25 MPV 9.8 fL (7.4-10.4) 01/24/24 17:25 Neut % (Auto) 84.6 % 01/24/24 17:25 Lymph % (Auto) 7.6 % 01/24/24 17:25 Frio % (Auto) 6.9 % 01/24/24 17:25 Eos % (Auto) 0.3 % 01/24/24 17:25 Baso % (Auto) 0.3 % 01/24/24 17: Neut # (Auto) 5.78 10^3/uL (1.8-7.7) 01/24/24 17:25 Lymph # (Auto) 0.5 10^3/uL (0.8-4.8) L 01/24/24 17:25 Frio # (Auto) 0.5 10^3/uL (0.2-0.9) 01/24/24 17:25 Eos # (Auto) 0.0 10^3/uL (0.0-0.8) 01/24/24 17:25 Baso # (Auto) 0.0 10^3/uL (0.0-0.1) 01/24/24 17: Nucleated RBC % (auto) 0 % 01/24/24 17: Nucleated RBCs # 0.0 /100WBC 01/24/24 17:25 Specimen Type Arterial 01/24/24 17:12 Sample Site Radial, left 01/24/24 17:12 ABG pH 7.41 (7.35-7.45) 01/24/24 17:12 ABG pCO2 41.5 mmHg (35-45) 01/24/24 17:12 ABG pO2 75.1 mmHg (80.0-100.0) L 01/24/24 17:12 ABG PO2/FiO2 Ratio 208 01/24/24 17:12 ABG HCO3 25.9 mmol/L (22-26) 01/24/24 17:12 ABG O2 Saturation 95.7 01/24/24 17:12 ABG Base Excess 1.1 mmol/L (-2.0-2.0) 01/24/24 17:12 Jerrod Test Pos 01/24/24 17:12 A-a O2 Gradient 16.9 mmHg (5-10) H 01/24/24 17:12 Hematocrit 33.0 % (37-47) L 01/24/24 17:12 Hgb O2 Saturation 94.3 % (95-100) L 01/24/24 17:12 Carboxyhemoglobin 0.6 %THgb (0.4-20.1) 01/24/24 17:12 Methemoglobin 0.9 % (0.4-1.5) 01/24/24 17:12 Total Hemoglobin 10.8 g/dL (12-16) L 01/24/24 17:12 Sodium 137.0 mmol/L (131-143) 01/24/24 17:12 Potassium 3.8 mmol/L (3.5-5.0) 01/24/24 17:12 Glucose 111.0 mg/dL (70-115) 01/24/24 17:12 Ionized Calcium 1.2 mmol/L (1.1-1.4) 01/24/24 17:12 O2 Delivery Device Nc 01/24/24 17:12 O2 Liters/Min 4.0 % 01/24/24 17:12 FiO2 36.0 % 01/24/24 17:12 Leaded Glass Installer ID Cak 01/24/24 17:12 Sodium 139 mmol/L (136-145) 01/24/24 17:25 Potassium 4.3 mmol/L (3.5-5.1) 01/24/24 17:25 Chloride 99 mmol/L (98-107) 01/24/24 17:25 Carbon Dioxide 28 mmol/L (22-29) 01/24/24 17:25 Anion Gap 16.3 (5-19) 01/24/24 17:25 BUN 20 mg/dL (8-23) 01/24/24 17:25 Creatinine 0.5 mg/dL (0.5-0.9) 01/24/24 17:25 GFR Calculation Not Reportable 01/24/24 17:25 Glucose 108 mg/dL (65-115) 01/24/24 17:25 Calculated Osmolality 291 mOsm/kg (285-295) 01/24/24 17:25 Lactic Acid 1.4 mmol/L (0.5-2.2) 01/24/24 17:25 Calcium 9.8 mg/dL (8.5-10.5) 01/24/24 17:25 Total Bilirubin 0.4 mg/dL (0.15-1.2) 01/24/24 17:25 AST 12 U/L (0-32) 01/24/24 17:25 ALT < 5 U/L (0-33) 01/24/24 17:25 Alkaline Phosphatase 108 U/L (35-105) H 01/24/24 17:25 Creatine Kinase 144 U/L (26-192) 01/24/24 17:25 Troponin T Baseline 38 ng/L (0-10) H 01/24/24 17:25 Troponin T 120 Minute 31.15 ng/L (0-10) H 01/24/24 19:18 Delta Troponin T -6.85 ABS# (0-10) L 01/24/24 19:18 C-Reactive Protein 3.0 mg/L (0.0-4.9) 01/24/24 17:25 Total Protein 6.9 g/dL (6.6-8.7) 01/24/24 17:25 Albumin 4.5 g/dL (3.5-5.2) 01/24/24 17:25 Globulin 2.4 g/dL (1.3-4.6) 01/24/24 17:25 Urine Color Not Reportable 01/24/24 18:08 Urine Appearance Not Reportable 01/24/24 18:08 Urine pH Not Reportable 01/24/24 18:08 Ur Specific [place] Not Reportable 01/24/24 18:08 Urine Protein Not Reportable 01/24/24 18:08 Urine Glucose (UA) Not Reportable 01/24/24 18:08 Urine Ketones Not Reportable 01/24/24 18:08 Urine Blood Not Reportable 01/24/24 18:08 Urine Nitrate Not Reportable 01/24/24 18:08 Urine Bilirubin Not Reportable 01/24/24 18:08 Urine Urobilinogen Not Reportable 01/24/24 18:08 Ur Leukocyte Esterase Not Reportable 01/24/24 18:08 Urine RBC 0-4 /hpf (0-2) H 01/24/24 18:08 Urine WBC 0-4 /hpf (0-5) H 01/24/24 18:08 Ur Squamous Epith Cells 0-4 /hpf (0-5) H 01/24/24 18:08 Calcium Oxalate Crystal 0-4 /hpf H 01/24/24 18:08 Amorphous Sediment Not Reportable 01/24/24 18:08 Urine Bacteria Trace /hpf (NONE) 01/24/24 18:08 Urine Mucus Trace /hpf 01/24/24 18:08 Coronavirus (PCR) Negative (Negative) 01/24/24 18:08 Influenza A (PCR) Negative (Negative) 01/24/24 18:08 Influenza Type B (PCR) Negative (Negative) 01/24/24 18:08 RSV (PCR) Negative (Negative) 01/24/24 18:08 All radiology interpretation(s) finalized by discharge Discharge Plan Discharge Patient Disposition: Home Clinical Impression: Syncope Condition: Stable Prescriptions: No Action entacapone 200 mg tablet 1 tab PO .5XD venlafaxine 150 mg capsule,extended release 24hr 300 mg PO QAM ropinirole 0.5 mg tablet 0.5 mg PO TID buspirone 15 mg tablet 15 mg PO TID diazepam 5 mg tablet 5 mg PO TID carbidopa-levodopa 25-100 mg tablet 2 tab PO .COMPLEX Qty: 120 4RF Rx Instructions: 2 tabs orally at 7:30AM 12:00PM 6:00PM & 10:00 pm baclofen 10 mg tablet 10 mg PO QID Qty: 120 4RF (DME) [place] boot to the left See Rx Instructions .Route .MEDSUPPLY Qty: 1 0RF Rx Instructions: As directed by [facility] [place] albuterol sulfate 2.5 mg /3 mL (0.083 %) solution for nebulization 2.5 mg inhalation Q4H PRN (Reason: Wheezing) ascorbic acid (vitamin C) 250 mg Tablet 250 mg PO BID benzonatate 100 mg Capsule 100 mg PO TID PRN (Reason: Cough) alum-mag hydroxide-simeth 200-200-20 mg/5 mL Suspension 30 ml PO Q2H PRN (Reason: Indigestion) Rx Instructions: administer between meals and at bedtime albuterol sulfate 90 mcg/actuation HFA aerosol inhaler 2 puff INHALATION Q6H PRN (Reason: Shortness Of Breath) cholecalciferol (vitamin D3) 25 mcg (1,000 unit) Tablet 25 mcg PO DAILY diclofenac sodium 1 % Gel 4 g TOPICAL BID Rx Instructions: apply to single knee, ankle, foot; for foot includes sole/toes/top of foot Biofreeze (menthol) 4 % Gel 1 applic TOPICAL Q6H PRN (Reason: Pain) multivitamin Tablet 1 tab PO DAILY hydrocortisone 0.5 % Cream 1 applic TOPICAL BID acetaminophen 325 mg Tablet 650 mg PO Q6H PRN (Reason: Pain) ipratropium-albuterol 0.5 mg-3 mg(2.5 mg base)/3 mL Solution For Nebulization 3 ml INHALATION Q6H PRN (Reason: Shortness Of Breath) lidocaine 4 % Adhesive Patch,Medicated 1 patch TOPICAL DAILY PRN (Reason: Pain) ondansetron HCl 8 mg tablet 8 mg PO Q6H PRN (Reason: Nausea And Vomiting) sucralfate 1 gram tablet 1 mg PO BID potassium chloride 20 mEq tablet,ER particles/crystals 20 meq PO BID nortriptyline 75 mg capsule 75 mg PO BEDTIME ferrous sulfate 325 mg (65 mg iron) Tablet 325 mg PO BID Colace 100 mg Capsule 100 mg PO DAILY Flonase 50 mcg/actuation [place],Suspension 1 spray INTRANASAL DAILY Rx Instructions: administer into each nostril loratadine 10 mg Tablet 10 mg PO DAILY Robitussin Cold, Cough,and Flu 1-2.5-5-160 mg/5 mL Suspension 5 ml PO Q4H PRN (Reason: Cough) oxycodone 10 mg tablet 10 mg PO Q6H PRN (Reason: Pain, Moderate) guaifenesin 600 mg Tablet Extended Release 12hr 600 mg PO Q12H Discharge Orders: Discharge ED (Routine); Ordered 01/24/24 Ordered By: Saritha Villanueva Referrals: Daniel Coronel Jr, MD [Primary Care Provider] - Patient Instructions: Syncope (ED), Opioid Safety, Pain Management Activity Restrictions/Additional Instructions: Thank you for choosing [facility] for your healthcare needs today. Please realize this is an emergency room and that we are providing you with a medical screening exam and this may not be complete and all inclusive of all the testing and or work up that you may need to determine your ailment or severity of your illness. You have been screened and evaluated and felt safe for discharge. Health conditions do change or evolve sometimes and as such it is important that you follow up with your Primary Doctor to be re checked, 3-5 days is a general good time frame for follow up. You are always welcome to return to the ED for re assessment if your symptoms are worsening or you have new concerns Coding Level of Care Code ED Breakdown Person for Roselia Hamm
[2024-01-24 17:23] LABS: ABG PCO2 41.5 mmHg (35-45); ABG PH Result 7.41 (7.35-7.45); Alveolar-Arterial Oxygen Gradi 16.9 mmHg (5-10); Base Excess ABG 1.1 mmol/L (-2.0-2.0); Blood Gas Allen Test Pos; Blood Gas Operator Identificat CAK; Blood Gas Sample Site Radial, left; Blood Gas Sample Type Arterial; Carboxyhemoglobin 0.6 %THgb (0.4-20.1); HCO3 ABG 25.9 mmol/L (22-26); HGB O2 Sat 94.3 % (95-100); Ionized Calcium Level - ABG 1.2 mmol/L (1.1-1.4); Methemoglobin 0.9 % (0.4-1.5); Oxygen Device NC; Oxygen Saturation ABG 95.7; PO2 ABG 75.1 mmHg (80.0-100.0); PO2 FiO2 Ratio Arterial Blood 208; Potassium Level - ABG 3.8 mmol/L (3.5-5.0); Total Hemoglobin 10.8 g/dL (12-16)
[2024-01-24 17:32] LABS: Basophils % 0.3 %; Eosinophils % 0.3 %; Hematocrit 35.4 % (36-47); Lymphocytes # 0.5 10^3/uL (0.8-4.8); Lymphocytes % 7.6 %; Mean Corpuscular HGB Conc 31.1 g/dL (30-55); Mean Corpuscular Hemoglobin 25.9 pg (27-33); Mean Corpuscular Volume 83.5 fl (85-98); Mean Platelet Volume 9.8 fL (7.4-10.4); Monocytes # 0.5 10^3/uL (0.2-0.9); Monocytes % 6.9 %; Neutrophils # 5.78 10^3/uL (1.8-7.7); Neutrophils % 84.6 %; Nucleated Red Blood Cells % 0 %; Platelet Count 371 10^3/cmm (157-399); Red Blood Count 4.24 10^6/uL (3.85-5.65); Red Cell Distribution Width 15.4 % (12.1-15.1); White Blood Count 6.83 10^3/uL (3.29-11.43)
[2024-01-24 17:50] LABS: Alanine Aminotransferase < 5 U/L (0-33); Albumin Level 4.5 g/dL (3.5-5.2); Alkaline Phosphatase 108 U/L (35-105); Anion Gap 16.3 (5-19); Aspartate Amino Transferase 12 U/L (0-32); Blood Urea Nitrogen 20 mg/dL (8-23); Calcium 9.8 mg/dL (8.5-10.5); Carbon Dioxide 28 mmol/L (22-29); Chloride 99 mmol/L (98-107); Creatine Phosphokinase 144 U/L (26-192); Creatinine Clr Calc Pharmacy 43.5015; Globulin 2.4 g/dL (1.3-4.6); Glucose 108 mg/dL (65-115); Osmolality Calculated 291 mOsm/kg (285-295); Potassium 4.3 mmol/L (3.5-5.1); Sodium 139 mmol/L (136-145); Total Bilirubin 0.4 mg/dL (0.15-1.2); Total Protein 6.9 g/dL (6.6-8.7)
[2024-01-24 17:51] LABS: Lactic Sepsis W/Reflex 1.4 mmol/L (0.5-2.2); Troponin(5th) Baseline 38 ng/L (0-10)
[2024-01-24 18:09] VITALS: BP 142/93; PULSE 131; RESP 16; O2SAT 99
[2024-01-24 18:39] LABS: Add Urine Culture? No; Bacteria Urine TRACE /hpf; Calcium Oxalate Crystals Urine 0-4 /hpf; Mucus Urine TRACE /hpf; RBC Urine 0-4 /hpf (0-2); Squamous Epithelial Cell Urine 0-4 /hpf (0-5); WBC Urine 0-4 /hpf (0-5)
[2024-01-24 18:56] LABS: Covid PCR NEGATIVE (Negative); Influenza A NEGATIVE (Negative); Influenza B NEGATIVE (Negative); Respiratory Syncytial Virus Ce NEGATIVE (Negative)
[2024-01-24 19:13] VITALS: BP 109/50; PULSE 62; RESP 26; O2SAT 94
[2024-01-24 19:48] LABS: Troponin 5 2HR 31.15 ng/L (0-10); Troponin 5 2HR Delta -6.85 ABS# (0-10)
[2024-01-24 20:31] VITALS: BP 94/56; PULSE 62; RESP 20
[2024-01-24] MEDS: baclofen 10 mg Tablet PO (21:12)
[2024-01-24 21:23] VITALS: BP 159/68; PULSE 154; RESP 22; O2SAT 92
[2024-01-24 23:42] VITALS: BP 121/47; PULSE 71; RESP 16; O2SAT 100
== END 2024-01-24 23:00 | disposition home or self-care (01) ==
PROVIDERS: Emergency Provider Emergency Medicine; PCP Family Medicine
DX: R55 Syncope and collapse (principal); Z11.52 Encounter for screening for COVID-19; Z87.891 Personal history of nicotine dependence; J96.91 Respiratory failure, unspecified with hypoxia
CPT/HCPCS: 0241U; 36415; 36600; 70450; 71045; 80051; 80053; 81001; 82330; 82550; 82805; 83605; 84484; 85025; 86140; 87040; 93005; 99285